=== PATIENT | female | born 1955 | race Caucasian/White ===

== ENCOUNTER 2016-05-24 06:19 | Day surgery (SDC) | payer MEDICAID ==
[~2016-05-24] VITALS: Ht 170.2 cm; Wt 60.9 kg
[2016-05-24 07:07] VITALS: BP 143/76
[2016-05-24] MEDS ORDERED: LIDOCAINE 1%, 20ML ONE (07:34)
[2016-05-24] MEDS ORDERED: SPIR100T2 PO (07:45)
[2016-05-24] MEDS ORDERED: FURO40TA6 PO (07:45)
[2016-05-24] MEDS ORDERED: MIDAZOLAM 1 MG/ML, 5ML ONE (07:50)
[2016-05-24] MEDS ORDERED: NALOXONE 1 MG/ML, 2ML ONE (07:50)
[2016-05-24] MEDS ORDERED: FENTANYL PF 100 MCG/2ML ONE (07:50)
[2016-05-24] MEDS ORDERED: FLUMAZENIL 0.1 MG/1 ML, 5ML ONE (07:51)
[2016-05-24] MEDS ORDERED: SODIUM CHLORIDE 0.9% 1,000 ML IV SCH (09:00)
[2016-05-24] MEDS ORDERED: VISIPAQUE 270 MG/ML, 50ML BOTTLE ONE (10:00)
== END 2016-05-24 13:12 ==
LOC: OUT 06:19
PROVIDERS: ATTEND Internal Medicine Gastroenterology
DX: K74.60 Unspecified cirrhosis of liver (principal)
CPT/HCPCS: 36011; 47000; 75970; 76937; 88307; 88313; C1751; C1769; C1894; J2250; J3010; J3490; J7030; Q9966; 99156; 99157; J2310

== ENCOUNTER → 2016-05-26 | Outpatient (CLI) | payer MEDICAID ==
[~2016-05-26] MED LIST: FURO40TA6 PO; LIDOCAINE 1%, 20ML ONE; SODIUM BICARBONATE 4.2%, 5ML ONE; SPIR100T2 PO
== END | disposition home or self-care (01) ==
LOC: RAD 12:22
PROVIDERS: ATTEND Nurse Practitioner Family
DX: K70.31 Alcoholic cirrhosis of liver with ascites (principal)
CPT/HCPCS: 49083; J3490

== ENCOUNTER → 2016-07-05 | Outpatient (CLI) | payer MEDICAID | END | disposition home or self-care (01) | LOC: RAD 10:56 | PROVIDERS: ATTEND Internal Medicine Gastroenterology | DX: K70.31 Alcoholic cirrhosis of liver with ascites (principal) | CPT/HCPCS: 49083; 82042; 84157; 87070; 87075; 87205; 89051; J3490 ==

== ENCOUNTER → 2016-10-25 | Outpatient (CLI) | payer MEDICAID ==
[~2016-10-25] MED LIST changes: -LIDOCAINE 1%, 20ML ONE; +LIDOCAINE 2%, 20ML ONE; -SODIUM BICARBONATE 4.2%, 5ML ONE
== END | disposition home or self-care (01) ==
LOC: RAD 15:00
PROVIDERS: ATTEND Nurse Practitioner Family
DX: J90 Pleural effusion, not elsewhere classified (principal); R06.02 Shortness of breath
CPT/HCPCS: 32555; J3490

== ENCOUNTER → 2016-11-08 | Outpatient (CLI) | payer MEDICAID ==
[~2016-11-08] MED LIST changes: +LIDOCAINE 1%, 20ML ONE; -LIDOCAINE 2%, 20ML ONE
== END | disposition home or self-care (01) ==
LOC: RAD 15:23
PROVIDERS: ATTEND Genetic Counselor, MS
DX: J90 Pleural effusion, not elsewhere classified (principal)
CPT/HCPCS: 32555; J3490

== ENCOUNTER → 2016-11-29 | Outpatient (CLI) | payer MEDICAID | END | disposition home or self-care (01) | LOC: RAD 14:51 | PROVIDERS: ATTEND Genetic Counselor, MS | DX: J90 Pleural effusion, not elsewhere classified (principal) | CPT/HCPCS: 32555; J3490 ==

== ENCOUNTER → 2017-01-09 | Outpatient (CLI) | payer MEDICAID ==
[~2017-01-09] MED LIST changes: -LIDOCAINE 1%, 20ML ONE; +LIDOCAINE 2%, 20ML ONE
== END | disposition home or self-care (01) ==
LOC: RAD 13:42
PROVIDERS: ATTEND Genetic Counselor, MS
DX: J90 Pleural effusion, not elsewhere classified (principal)
CPT/HCPCS: 32555; J3490

== ENCOUNTER 2017-01-15 12:16 | Emergency (ER) | payer MEDICAID ==
[~2017-01-15] VITALS: Ht 170.2 cm; Wt 57.0 kg
[~2017-01-15 12:16] MED LIST changes: -LIDOCAINE 2%, 20ML ONE
[2017-01-15] MEDS ORDERED: CIPR750T PO (12:54)
[2017-01-15] MEDS ORDERED: RIFA550T4 PO (12:59)
[2017-01-15] MEDS ORDERED: VIT1TABL3 PO (12:59)
[2017-01-15] MEDS ORDERED: OXYC5CAP2 PO (12:59)
[2017-01-15] MEDS ORDERED: PARO10TA3 PO (12:59)
[2017-01-15] MEDS ORDERED: ONDA8TAB16 SL (12:59)
[2017-01-15] MEDS ORDERED: ONDANSETRON 2MG/ML, 2ML IVP ONE (13:00)
[2017-01-15] MEDS ORDERED: SODIUM CHLORIDE FLUSH 10ML SYR IVF ONE (13:00)
[2017-01-15] MEDS ORDERED: HYDROmorphone 1 MG/ML, 1ML IV PRN (13:00)
[2017-01-15] MEDS ORDERED: HYDROmorphone 1 MG/ML, 1ML ONE (13:01)
[2017-01-15] MEDS ORDERED: ONDANSETRON 2MG/ML, 2ML ONE (13:02)
[2017-01-15 13:57] LABS: HEMATOCRIT 38.8 % (34.6-47.8); HEMOGLOBIN 13.1 g/dL (11.7-16.4); WHITE BLOOD COUNT 5.1 x10^3/uL (3.4-10)
[2017-01-15 14:09] LABS: BLOOD UREA NITROGEN 17 mg/dL (7-18)
[2017-01-15 14:15] LABS: IS PT STATUS REG ER OR PRE ER? YES
[2017-01-15] MEDS ORDERED: OMNIPAQUE 350 MG/ML, 100ML BOTTLE ONE (16:33)
[2017-01-15 17:46] VITALS: BP 116/61
== END 2017-01-15 18:25 | disposition home or self-care (01) ==
LOC: ED 14:32
DX: R07.89 Other chest pain (principal)
CPT/HCPCS: 36415; 71020; 71275; 80048; 82040; 83880; 84484; 85025; 85610; 85730; 93005; 96374; 96375; 99285; J1170; J2405; Q9967

== ENCOUNTER → 2017-02-02 | Outpatient (CLI) | payer MEDICAID ==
[~2017-02-02] MED LIST changes: +CIPR750T PO; +ONDA8TAB16 SL; +OXYC5CAP2 PO; +PARO10TA3 PO; +RIFA550T4 PO; +VIT1TABL3 PO
== END | disposition home or self-care (01) ==
LOC: CVU 14:02
PROVIDERS: ATTEND Genetic Counselor, MS
DX: M79.671 Pain in right foot (principal); M79.661 Pain in right lower leg; K72.90 Hepatic failure, unspecified without coma; K74.60 Unspecified cirrhosis of liver; S92.901D Unspecified fracture of right foot, subsequent encounter for fracture with routine healing; X58.XXXD Exposure to other specified factors, subsequent encounter
CPT/HCPCS: 93922

== ENCOUNTER → 2017-05-11 | Outpatient (CLI) | payer MEDICAID ==
[~2017-05-11] MED LIST changes: +LIDOCAINE 1%, 20ML ONE
== END | disposition home or self-care (01) ==
LOC: RAD 13:45
PROVIDERS: ATTEND Genetic Counselor, MS
DX: K74.60 Unspecified cirrhosis of liver (principal)
CPT/HCPCS: 49083; J3490